=== PATIENT | female | born 1940 | race Caucasian/White ===

== ENCOUNTER 2021-03-13 12:52 | Outpatient (RCR) | payer MEDICARE | END 2021-03-14 | LOC: PT 12:52 | PROVIDERS: ATTEND Specialist | DX: M16.0 Bilateral primary osteoarthritis of hip (principal); M54.9 Dorsalgia, unspecified ==

== ENCOUNTER 2021-04-10 13:00 | Outpatient (RCR) | payer MEDICARE | END 2021-04-14 | LOC: PT 13:00 | PROVIDERS: ATTEND Specialist | DX: M16.0 Bilateral primary osteoarthritis of hip (principal); M54.9 Dorsalgia, unspecified | CPT/HCPCS: 97139 ==

== ENCOUNTER 2021-04-22 12:56 | Outpatient (RCR) | payer MEDICARE | END 2021-05-12 | LOC: PT 12:56 | PROVIDERS: ATTEND Specialist | DX: M16.0 Bilateral primary osteoarthritis of hip (principal); M54.50 Low back pain, unspecified; M62.81 Muscle weakness (generalized); M25.651 Stiffness of right hip, not elsewhere classified | CPT/HCPCS: 97110 ×5; 97139; G0283 ==

== ENCOUNTER 2021-09-02 07:00 | Observation (INO) | payer MEDICARE ==
[2021-08-29 10:02] LABS: BASOPHILS # (AUTO) 0.1 (0.0-0.1); BASOPHILS % 1.1 % (0.0-1.0); EOSINOPHILS # (AUTO) 0.1 (0.0-0.4); EOSINOPHILS % 1.3 % (0.0-6.0); HEMATOCRIT 37.6 % (34.2-44.1); HEMOGLOBIN 12.2 g/dL (12.0-16.0); LYMPHOCYTES # (AUTO) 1.1 (1.0-3.2); LYMPHOCYTES % 16.7 % (18.0-39.1); MEAN CORPUSCULAR HEMOGLOBIN 30.3 pg (28-32); MEAN CORPUSCULAR HGB CONC 32.4 g/dL (31-35); MEAN CORPUSCULAR VOLUME 93.5 fL (81-99); MONOCYTES # (AUTO) 0.6 (0.2-0.8); MONOCYTES % 9.7 % (4.4-11.3); NEUTROPHILS # (AUTO) 4.4 (2.1-6.9); NEUTROPHILS % 70.6 % (38.7-80.0); PLATELET COUNT 219 x10e3/uL (140-360); RED BLOOD COUNT 4.02 x10e6/uL (3.6-5.1); RED CELL DISTRIBUTION WIDTH 14.3 % (11.7-14.4)
[~2021-09-02 07:00] MED LIST: ACTONEL35 MG PO; ASPIRIN81 MG PO; ATENOLOL50 MG PO; BENAZEPRIL HCL10 MG PO; CANDICIDAL CAP1 EACH PO; CELECOXIB 200 MG CAP ONE; CORTIZONE-1028 G1 TOP; DEXAMETHASONE SOD PHOS 10 MG/1 ML VIAL ONE; FISH OIL 1,0001 EAC2 PO; GABAPENTIN 300 MG CAP ONE; HYDROCHLOROTHIA25 MG PO; I-CAPS AREDS S1 EACH PO; LEVOTHYROXINE50 MCG PO; MULTI-VITAMIN1 EACH PO; OS-CAL 500+D T1 EACH PO; PRAVASTATIN SOD20 MG PO; SODIUM CHLORIDE 0.9% 500ML 500 ML ONE; TRANEXAMIC ACID 20 ML ONE; Vancomycin IV 1,000 MG ONE
[2021-09-02] MEDS ORDERED: ROPIVACAINE 246.25 MG, EPINEPHRINE HCL 1:1000 1ML 0.5 MG, CLONIDINE HCL 0.08 MG, KETORO... INJ ONE ×5 (08:00)
[2021-09-02] MEDS ORDERED: KETOROLAC TROMETHAMINE 30 MG/ML VIAL IV PRN (11:30)
[2021-09-02] MEDS ORDERED: DOCUSATE SODIUM 100 MG CAP PO PRN (11:30)
[2021-09-02] MEDS ORDERED: HYDROCODONE/APAP 7.5MG-325MG 1 EA TAB PO PRN (11:30)
[2021-09-02] MEDS ORDERED: ZOLPIDEM TARTRATE 5 MG TAB PO PRN (11:30)
[2021-09-02] MEDS ORDERED: ACETAMINOPHEN 650 MG SUPP PR PRN (11:30)
[2021-09-02] MEDS ORDERED: ONDANSETRON HCL INJ 2MG/ML 2ML 2 MG/ML VIAL IV PRN (11:30)
[2021-09-02] MEDS ORDERED: HYDROCODONE/APAP 5MG-325MG TAB PO PRN (11:30)
[2021-09-02] MEDS ORDERED: DIPHENHYDRAMINE HCL INJ 50 MG/ML VIAL IV PRN (11:30)
[2021-09-02] MEDS ORDERED: FENTANYL CITRATE/PF 100MCG/2 ML INJ ONE (13:18)
[2021-09-02] MEDS ORDERED: MIDAZOLAM HCL 2 MG/2 ML VIAL ONE (13:18)
[2021-09-02] MEDS ORDERED: ACETAMINOPHEN 1000 MG/100 ML IV ONE (13:29)
[2021-09-02] MEDS ORDERED: PROPOFOL IV EMULSION 10 MG/ML 20 ML VIAL ONE (13:29)
[2021-09-02] MEDS ORDERED: ONDANSETRON HCL INJ 2MG/ML 2ML 2 MG/ML VIAL ONE (13:29)
[2021-09-02] MEDS ORDERED: LIDOCAINE HCL 2% LOCAL INJ 5 ML SDV VIAL INJ ONE (13:29)
[2021-09-02] MEDS ORDERED: SEVOFLURANE INHAL SOLN 250 ML PEN BTL ONE (13:29)
[2021-09-02] MEDS ORDERED: EPHEDRINE SULFATE INJ 50 MG/ML VIAL ONE (13:29)
[2021-09-02] MEDS ORDERED: POVIDONE IODINE 0.05% 0.05 % ML PO ONE (13:29)
[2021-09-02 15:27] VITALS: BP 117/60
[2021-09-02 15:34] VITALS: BP 115/54
[2021-09-02] MEDS ORDERED: ACETAMINOPHEN 1000 MG/100 ML IV PRN (16:00)
[2021-09-02] MEDS ORDERED: CELECOXIB 100 MG CAP PO SCH (17:00)
[2021-09-02] MEDS ORDERED: ASPIRIN 325 MG TAB PO SCH (17:00)
[2021-09-03] MEDS ORDERED: CELECOXIB 200 MG CAP PO SCH (09:00)
== END 2021-09-02 17:56 | disposition home or self-care (01) ==
LOC: OR 07:00 → PACU V 11:21 → MED/SURG3 13:57
PROVIDERS: ADMIT Specialist; ATTEND Specialist
DX: M16.11 Unilateral primary osteoarthritis, right hip (principal); I10 Essential (primary) hypertension; M17.11 Unilateral primary osteoarthritis, right knee; E03.9 Hypothyroidism, unspecified; Z85.3 Personal history of malignant neoplasm of breast; Z92.21 Personal history of antineoplastic chemotherapy; Z01.812 Encounter for preprocedural laboratory examination; Z01.818 Encounter for other preprocedural examination; Z13.83 Encounter for screening for respiratory disorder NEC; Z20.822 Contact with and (suspected) exposure to COVID-19
CPT/HCPCS: 27130; 36415; 71046; 72170; 85025; 86850; 86900; 86920; 97110; 97116 ×2; 97139; 97161; 97530; C1713 ×2; C1776 ×3; G0378; J0131; J0171; J0690; J1100; J1885; J2001; J2250; J2405; J2704; J2795; J3010; J3370; J7040; U0002

== ENCOUNTER → 2022-12-15 | Day surgery (SDC) | payer MEDICARE ==
[2022-12-11 11:49] LABS: BASOPHILS # (AUTO) 0.1 (0.0-0.1); BASOPHILS % 0.9 % (0.0-1.0); EOSINOPHILS # (AUTO) 0.2 (0.0-0.4); EOSINOPHILS % 2.4 % (0.0-6.0); HEMATOCRIT 35.3 % (34.2-44.1); HEMOGLOBIN 11.8 g/dL (12.0-16.0); LYMPHOCYTES # (AUTO) 1.5 (1.0-3.2); LYMPHOCYTES % 20.4 % (18.0-39.1); MEAN CORPUSCULAR HGB CONC 33.4 g/dL (31-35); MEAN CORPUSCULAR VOLUME 86.7 fL (81-99); MONOCYTES # (AUTO) 0.5 (0.2-0.8); MONOCYTES % 7.3 % (4.4-11.3); NEUTROPHILS # (AUTO) 5.1 (2.1-6.9); NEUTROPHILS % 68.5 % (38.7-80.0); PLATELET COUNT 297 x10e3/uL (140-360); RED BLOOD COUNT 4.07 x10e6/uL (3.6-5.1); RED CELL DISTRIBUTION WIDTH 14.6 % (11.7-14.4); WHITE BLOOD COUNT 7.41 x10e3/uL (4.8-10.8)
[2022-12-11 12:35] LABS: ALBUMIN 3.5 g/dL (3.5-5.0); ANION GAP 16.9 mmol/L (8-16); CALCIUM 8.9 mg/dL (8.4-10.2); CHOL/HDL RATIO 3.1 (3.0-3.6); CREATININE, SERUM 0.8 mg/dL (0.57-1.11); POTASSIUM 3.9 mmol/L (3.5-5.1)
[2022-12-15] VITALS (19 sets, daily range): BP systolic 88–124; BP diastolic 50–73; PULSE 48–104; RESP 9–18; TEMP 97.3–98; O2SAT 97–100
[~2022-12-15] VITALS: Ht 165.1 cm; Wt 88.5 kg
[~2022-12-15] MED LIST changes: +ALPRAZOLAM 0.5 MG TAB ONE; +AMLODIPINE BESYL5 MG PO; +BENZOCAINE 20% SPR 60 ML CAN ONE; -CELECOXIB 200 MG CAP ONE; -DEXAMETHASONE SOD PHOS 10 MG/1 ML VIAL ONE; +DIPHENHYDRAMINE HCL 25 MG CAP ONE; +ELIQUIS5 MG PO; +FENTANYL CITRATE/PF 100MCG/2 ML INJ ONE; -GABAPENTIN 300 MG CAP ONE; +MIDAZOLAM HCL 2 MG/2 ML VIAL ONE; +SODIUM CHLORIDE 0.9% 1000ML 1,000 ML ONE; -SODIUM CHLORIDE 0.9% 500ML 500 ML ONE; -TRANEXAMIC ACID 20 ML ONE; -Vancomycin IV 1,000 MG ONE
== END | disposition home or self-care (01) ==
LOC: CATH LAB 11:36
PROVIDERS: ATTEND Internal Medicine
DX: I20.9 Angina pectoris, unspecified (principal); I48.19 Other persistent atrial fibrillation; I35.8 Other nonrheumatic aortic valve disorders; I34.0 Nonrheumatic mitral (valve) insufficiency; I10 Essential (primary) hypertension; E78.00 Pure hypercholesterolemia, unspecified; Z01.812 Encounter for preprocedural laboratory examination; Z79.02 Long term (current) use of antithrombotics/antiplatelets; Z79.82 Long term (current) use of aspirin; Z79.899 Other long term (current) drug therapy; Z68.32 Body mass index [BMI] 32.0-32.9, adult; Z82.49 Family history of ischemic heart disease and other diseases of the circulatory system
CPT/HCPCS: 92960; C8925; 36415; 80053; 80061; 85025; 93005; 93312; 93320; 93325; J2250; J7030

== ENCOUNTER → 2023-10-28 | Outpatient (REF) | payer OTHER ==
[~2023-10-28] MED LIST changes: -ALPRAZOLAM 0.5 MG TAB ONE; -BENZOCAINE 20% SPR 60 ML CAN ONE; -DIPHENHYDRAMINE HCL 25 MG CAP ONE; -FENTANYL CITRATE/PF 100MCG/2 ML INJ ONE; -MIDAZOLAM HCL 2 MG/2 ML VIAL ONE; -SODIUM CHLORIDE 0.9% 1000ML 1,000 ML ONE
[2023-10-28 13:03] LABS: CREATININE, SERUM 0.94 mg/dL (0.57-1.11)
== END ==
LOC: CT 12:09
PROVIDERS: ATTEND Internal Medicine Interventional Cardiology
DX: R07.9 Chest pain, unspecified (principal); I48.91 Unspecified atrial fibrillation; I25.10 Atherosclerotic heart disease of native coronary artery without angina pectoris; I28.8 Other diseases of pulmonary vessels
CPT/HCPCS: 36415; 71275; 82565; 84520